=== PATIENT | female | born 1980 | race Caucasian/White ===

== ENCOUNTER 2016-07-08 14:58 | Emergency (ER) | payer MEDICAID ==
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
== END 2016-07-08 16:16 | disposition home or self-care (01) ==
LOC: ER 14:58
DX: S33.5XXA Sprain of ligaments of lumbar spine, initial encounter (principal); Z90.49 Acquired absence of other specified parts of digestive tract; V03.99XA Pedestrian with other conveyance injured in collision with car, pick-up truck or van, unspecified whether traffic or nontraffic accident, initial encounter; Y93.89 Activity, other specified; Y92.488 Other paved roadways as the place of occurrence of the external cause; Y99.8 Other external cause status
CPT/HCPCS: Z7502

== ENCOUNTER 2016-09-13 14:30 | Emergency (ER) | payer MEDICAID ==
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
[2016-09-13 15:57] LABS: AMPHETAMINE URINE POSITIVE (NEGATIVE); BARBITURATES URINE NEGATIVE (NEGATIVE); METHADONE URINE NEGATIVE (NEGATIVE)
--- NOTE | 2016-09-14 09:18 | Diagnostic Imaging Report ---
Thoracolumbar spine (3 views) HISTORY: Pain, trauma Only the lower portion of the thoracic spine is included in the exam. Alignment is normal. Disc spaces are maintained. Minimal spur formation noted about the endplates of L4 and L5. No acute abnormality is. No fractures. Incidentally noted are surgical clips within the right upper quadrant of the abdomen consistent with prior cholecystectomy. IMPRESSION: 1. No acute abnormalities 2. Mild degenerative changes
== END 2016-09-13 16:30 | disposition home or self-care (01) ==
LOC: ER 14:30
DX: S39.012A Strain of muscle, fascia and tendon of lower back, initial encounter (principal); V49.59XA Passenger injured in collision with other motor vehicles in traffic accident, initial encounter; Y93.89 Activity, other specified; Y92.488 Other paved roadways as the place of occurrence of the external cause; Y99.8 Other external cause status
CPT/HCPCS: 72080-TC; 80307; 81025-TC

== ENCOUNTER 2016-10-15 22:11 | Emergency (ER) | payer MEDICAID | END 2016-10-15 22:45 | disposition left against medical advice (07) | LOC: ER 22:11 | DX: R10.9 Unspecified abdominal pain (principal) ==

== ENCOUNTER 2016-12-08 22:30 | Emergency (ER) | payer MEDICAID ==
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
== END 2016-12-08 23:20 | disposition home or self-care (01) ==
LOC: ER 22:30
DX: J02.9 Acute pharyngitis, unspecified (principal)
CPT/HCPCS: 99284; 96372 ×2; J1885; J0696; Z7502

== ENCOUNTER 2017-02-15 06:38 | Emergency (ER) | payer MEDICAID ==
--- NOTE | 2017-02-15 07:08 | ED Physician Chart ---
ED Chief Complaint/HPI - Patient Information Date Seen:: 02/15/17 Time Seen:: 07:00 Chief Complaint:: PERIUMBILICAL PAIN FOR THE PAST YEAR. WORSE PAST 2-3 DAYS History of Present Illness:: THIS 36 YEAR OLD FEMALE PRESENTS WITH ARNOLD-UMBILICAL PAIN THAT STARTED A YEAR AGO WHEN SHE UNDERWENT SURGERY FOR OBESITY WITH A "SLEEVE" PLACED IN HER ABDOMEN. SHE RATES THE SEVERITY OF THE PAIN A 10/10 SEVERITY. THE PAIN IS SHARP/STABBING AND DOES NOT RADIATE TO THE BACK OR THE CHEST. PT HAS HAD DAILY NAUSEA AND VOMITING WITHOUT ANY DIARRHEA. THE PAIN HAS BECOME MORE SEVERE OVER THE PAST 2-3 D. THE PAIN IS MORE SEVERE WITH VOMITING. NO RELIEVING FACTORS. Allergies:: Allergies Allergy/AdvReac Type Severity Reaction Status Date / Time No Known Allergies Allergy Verified 12/08/16 22:32 <Cristian Schmid - Last Filed: 02/15/17 07:08> - Patient Information Allergies:: Allergies Allergy/AdvReac Type Severity Reaction Status Date / Time No Known Allergies Allergy Verified 12/08/16 22:32 Vitals:: Vital Signs - 8 hr 02/15/17 06:45 Temp 97.5 F HR 78 RR 19 BP 99/70 O2 Sat % 99 Historian:: Patient Family MD/PCP:: Dr. Hong LMP:: Irregular. On injectable contraceptive. Review:: Nurse's Note Reviewed <Surinder Unger - Last Filed: 02/15/17 13:23> ED Review of Systems - Review of Systems General/Constitutional: No fever, No chills, No weight loss, No weakness, No edema, No loss of appetite Skin: No rash, No bruising Head: No headache, No light-headedness Eyes: No loss of vision, No pain, No diplopia ENT: No earache, No nasal drainage, No sore throat Neck: No neck pain, No swelling, No thyromegaly, No stiffness, No mass noted Cardio Vascular: No chest pain, No palpitations, No edema Pulmonary: No SOB, No cough, No wheezing GI: Nausea, Vomiting, No diarrhea, Pain, No melena, Hematochezia (?), No hematemesis G/U: No dysuria, No frequency, No hematuria Merchandise Coordinator: No vaginal discharge, No abnormal vaginal bleed Musculoskeletal: No bone or joint pain, No back pain Endocrine: No polyuria, No polydipsia Psychiatric: No prior psych history Hematopoietic: No bruising, No lymphadenopathy Allergic/Immuno: No urticaria, No angioedema Neurological: No syncope, No focal symptoms, No weakness, No paresthesia, No headache, No dizziness, No confusion <Kingsley Ungergus - Last Filed: 02/15/17 13:23> ED Past Medical History - Past Medical History Past Medical History: Other (chronic pain syndrome related to postsurgical abdominal pain since 01/2016.) Family History: None Social History: Non Smoker, No Alcohol, No Drug Use, , Other (lives with her and children.) Surgical History: Cholecystectomy (Laparoscopic cholecystectomy surgery 01/2016. ), (x 4 with last one in .), other (abdominal surgery with sleeve for weight loss 01/2016) Psychiatricy History: None Medication: Reviewed <Surinder Unger - Last Filed: 02/15/17 13:23> Family Medical History - Family Member Mother History Unknown: Yes Living Status: Still Living Hx Family Cancer: Yes <Cristian Schmid - Last Filed: 02/15/17 07:08> ED Physical Exam - Physical Examination General/Constitutional: Awake, Well-developed, well-nourished, Alert, No distress, GCS 15, Non-toxic appearing, Ambulatory Other Gen/Cons comments:: Breathes comfortably, speaks clearly, interacts normally, and ambulates without difficulty. Head: Atraumatic Eyes: Lids, conjuctiva normal, PERRL, EOMI Other Eyes comments:: Anicteric sclera. Skin: Nl inspection, No rash, No skin lesions, No ecchymosis, No lymphadenopathy ENMT: External ears, nose nl, Nasal exam nl, Oropharynx nl Neck: Nontender, Full ROM w/o pain, No nuchal rigidity, No mass, No stridor Respiratory: Nl effort/Exclusion Cardio Vascular: RRR, No murmur, gallop, rubs GI: No organomegaly, No hernia, Normal BS's, Nondistended, No mass/bruits, No McBurney tenderness Other GI comments:: Tenderness to palpation at umbilical region. Abdomen is obese but soft. No R/G. : No CVA tenderness Other comments:: Pelvic and rectal exams: deferred per pt's request. Extremities: No tenderness or effusion, No edema Neuro/Psych: Alert/oriented (oriented x 3.), Mood normal, Normal gait, No focal deficits <NgSurinder - Last Filed: 02/15/17 13:23> ED Labs/Radiology/EKG Results - Lab Results Results: Laboratory Tests 02/15/17 02/15/17 02/15/17 07:28 07:28 07:28 WBC 5.8 RBC 4.07 Hgb 12.4 Hct 36.1 L MCV 88.6 MCH 30.5 MCHC Differential 34.4 RDW 13.0 Plt Count 172 MPV 9.0 Neutrophils % 51.0 Lymphocytes % 40.4 Monocytes % 5.4 Eosinophils % 2.4 Basophils % 0.8 PT 10.2 INR 0.98 PTT (Actin FS) 26.8 Sodium 136 Potassium 3.5 Chloride 105 Carbon Dioxide 29.5 Anion Gap 5.0 L BUN 12 Creatinine 0.7 Est GFR ( Amer) > 60.0 Est GFR (Non-Af Amer) > 60.0 BUN/Creatinine Ratio 17.1 Glucose 88 Calcium 8.9 Total Bilirubin 0.3 AST 14 ALT 10 Alkaline Phosphatase 69 Total Protein 6.4 Albumin 3.8 Globulin 2.6 Albumin/Globulin Ratio 1.5 Amylase 37 Lipase 24 POC Ur Test 02/15/17 08:15 WBC RBC Hgb Hct MCV MCH MCHC Differential RDW Plt Count MPV Neutrophils % Lymphocytes % Monocytes % Eosinophils % Basophils % PT INR PTT (Actin FS) Sodium Potassium Chloride Carbon Dioxide Anion Gap BUN Creatinine Est GFR ( Amer) Est GFR (Non-Af Amer) BUN/Creatinine Ratio Glucose Calcium Total Bilirubin AST ALT Alkaline Phosphatase Total Protein Albumin Globulin Albumin/Globulin Ratio Amylase Lipase POC Ur Test Negative Laboratory Last Values WBC 5.8 Th/cmm (4.8-10.8) 02/15/17 07:28 RBC 4.07 Mil/cmm (3.80-5.10) 02/15/17 07:28 Hgb 12.4 gm/dL (12-16) 02/15/17 07:28 Hct 36.1 % (41.0-60) L 02/15/17 07:28 MCV 88.6 fl (81-100) 02/15/17 07:28 MCH 30.5 pg (27.0-31.0) 02/15/17 07: MCHC Differential 34.4 pg (28.0-36.0) 02/15/17 07:28 RDW 13.0 % (11.5-20.0) 02/15/17 07:28 Plt Count 172 Th/cmm (150-400) 02/15/17 07:28 MPV 9.0 fl 02/15/17 07:28 Neutrophils % 51.0 % (40.0-80.0) 02/15/17 07:28 Lymphocytes % 40.4 % (20.0-50.0) 02/15/17 07:28 Monocytes % 5.4 % (2.0-10.0) 02/15/17 07: Eosinophils % 2.4 % (0.0-5.0) 02/15/17 07: Basophils % 0.8 % (0.0-2.0) 02/15/17 07:28 PT 10.2 SECONDS (9.5-11.5) 02/15/17 07:28 INR 0.98 (0.5-1.4) 02/15/17 07:28 PTT (Actin FS) 26.8 SECONDS (26.0-38.0) 02/15/17 07:28 Sodium 136 mEq/L (136-145) 02/15/17 07:28 Potassium 3.5 mEq/L (3.5-5.1) 02/15/17 07:28 Chloride 105 mEq/L (98-107) 02/15/17 07:28 Carbon Dioxide 29.5 mEq/L (21.0-31.0) 02/15/17 07:28 Anion Gap 5.0 (7.0-16.0) L 02/15/17 07:28 BUN 12 mg/dL (7-25) 02/15/17 07:28 Creatinine 0.7 mg/dL (0.6-1.2) 02/15/17 07:28 Est GFR ( Amer) > 60.0 ml/min (>90) 02/15/17 07:28 Est GFR (Non-Af Amer) > 60.0 ml/min 02/15/17 07:28 BUN/Creatinine Ratio 17.1 02/15/17 07:28 Glucose 88 mg/dL (70-105) 02/15/17 07:28 Calcium 8.9 mg/dL (8.6-10.3) 02/15/17 07:28 Total Bilirubin 0.3 mg/dL (0.3-1.0) 02/15/17 07:28 AST 14 U/L (13-39) 02/15/17 07:28 ALT 10 U/L (7-52) 02/15/17 07:28 Alkaline Phosphatase 69 U/L (34-104) 02/15/17 07:28 Total Protein 6.4 gm/dL (6.0-8.3) 02/15/17 07:28 Albumin 3.8 gm/dL (3.7-5.3) 02/15/17 07:28 Globulin 2.6 gm/dL 02/15/17 07:28 Albumin/Globulin Ratio 1.5 (1.0-1.8) 02/15/17 07:28 Amylase 37 U/L (29-103) 02/15/17 07:28 Lipase 24 U/L (11-82) 02/15/17 07:28 Urine Source CLEAN C 02/15/17 07:50 Urine Color YELLOW 02/15/17 07:50 Urine Clarity CLEAR (CLEAR) 02/15/17 07:50 Urine pH 7.0 (4.6 - 8.0) 02/15/17 07:50 Ur Specific [place] 1.010 (1.005-1.030) 02/15/17 07:50 Urine Protein NEGATIVE mg/dL (NEGATIVE) 02/15/17 07:50 Urine Glucose (UA) NEGATIVE mg/dL (NEGATIVE) 02/15/17 07:50 Urine Ketones NEGATIVE mg/dL (NEGATIVE) 02/15/17 07:50 Urine Blood NEGATIVE (NEGATIVE) 02/15/17 07:50 Urine Nitrate NEGATIVE (NEGATIVE) 02/15/17 07:50 Urine Bilirubin NEGATIVE (NEGATIVE) 02/15/17 07:50 Urine Urobilinogen 0.2 E.U./dL (0.2 - 1.0) 02/15/17 07:50 Ur Leukocyte Esterase NEGATIVE (NEGATIVE) 02/15/17 07:50 Urine RBC NONE SEEN /hpf (0-5) 02/15/17 07:50 Urine WBC 0-2 /hpf (0-5) 02/15/17 07:50 Ur Epithelial Cells OCCASIONAL /lpf (FEW) 02/15/17 07:50 Urine Bacteria FEW /hpf (NONE SEEN) 02/15/17 07:50 POC Ur Test Negative 02/15/17 08:15 - Radiology Results Results: CT of abdomen/pelvis with/without contrast: Verbal report from the radiologist Dr. Bhavik Gaytan at about 1255. See Note. <Surinder Unger - Last Filed: 02/15/17 13:23> ED Assessment - Assessment General Assessment: DR. UNGER IS HERE IN THE ED AND TAKING OVER THE CASE. <Cristian Schmid - Last Filed: 02/15/17 07:08> ED Septic Shock - . Is Septic Shock (SBP<90, OR Lactate>4 mmol\\L) present?: No - <6hrs of presentation: Vital Signs: Vital Signs - 8 hr 02/15/17 06:45 Temp 97.5 F HR 78 RR 19 BP 99/70 O2 Sat % 99 <Surinder Unger - Last Filed: 02/15/17 13:23> ED Reassessment (Disposition) - Reassessment Reassessment:: [address] Chen at about 0715. Pt was examined by me. Pt already had pain control ordered by Dr. Chen. Lab results and CT report are pending. 0915 Pt feels much better and does not need more pain control. Awaiting abdominal/pelvic CT. 1055 Pt remains stable. Her pain is tolerable. Pt does not need more pain control. Abdominal/pelvic CT report is pending. 1300 Pt remains stable and comfortable. Written CT report is still pending. Dr. Bhavik Gaytan, radiologist who read the abdominal/pelvic CT earlier today, called and spoke with me on the phone at about 1255. He stated that he had read the CT study earlier. The computer system was malfunctioning, and the written report could not be transmitted here. There were no acute or significant findings. No leak from gastric bypass surgery. He would attempt to send the report again later today. 1305 Discussed with pt at length. Pt continues to feel well. Lab and verbal CT report results have been discussed with pt. Management plan has been discussed. Pt requests to go home now and does not want further observation/management in hospital. Aftercare instructions have been given. Her will take her home. Reassessment Condition:: Improved - Diagnosis Diagnosis:: Chronic postsurgical abdominal pain. Stable and improved. - Aftercare/Follow up Instructions Aftercare/Follow-Up Instructions:: Refer to Discharge Instructions Notes:: Bedrest for today. Pt states that she has pain medication prescribed by PCP at home and does not need a prescription for any analgesic. Clear liquid diet today. Abdominal pain instructions given. F/U with PCP Dr. Hong in one day for recheck. Return to ER immediately if condition worsens or if any further questions/problems. Medication Prescribed:: None - Patient Disposition Discharge/Transfer:: Home Time:: 13:10 Condition at Disposition:: Stable, Improved <Surinder Unger - Last Filed: 02/15/17 13:23>
[2017-02-15] MEDS ORDERED: Sodium Chloride 0.9% 1,000 ML IV ONE (07:15)
[2017-02-15 07:39] LABS: % BASOPHILS 0.8 % (0.0-2.0); % EOSINOPHILS 2.4 % (0.0-5.0); % LYMPHOCYTES 40.4 % (20.0-50.0); % MONOCYTES 5.4 % (2.0-10.0); HEMATOCRIT 36.1 % (41.0-60); HEMOGLOBIN 12.4 gm/dL (12-16); MEAN CELL VOLUME 88.6 fl (81-100); MEAN CORPUSCULAR HEMOGLOBIN 30.5 pg (27.0-31.0); MEAN CORPUSCULAR HGB CONC 34.4 pg (28.0-36.0); NEUTROPHILE ABSOLUTE 3.1 Th/cmm (1.8-8.0); PLATELET COUNT 172 Th/cmm (150-400); RED BLOOD COUNT 4.07 Mil/cmm (3.80-5.10); WHITE BLOOD COUNT 5.8 Th/cmm (4.8-10.8)
[2017-02-15 07:47] LABS: INR 0.98 (0.5-1.4); PROTHROMBIN TIME (TEST) 10.2 SECONDS (9.5-11.5)
[2017-02-15] MEDS ORDERED: Morphine Sulfate 4 mg/mL 1mL Syr ONE (07:47)
[2017-02-15 07:53] LABS: ALB/GLOB RATIO 1.5 (1.0-1.8); ALKALINE PHOSPHATASE 69 U/L (34-104); AMYLASE SERUM 37 U/L (29-103); BILIRUBIN,TOTAL 0.3 mg/dL (0.3-1.0); BUN - UREA NITROGEN 12 mg/dL (7-25); BUN/CREATININE RATIO 17.1; CALCIUM SERUM 8.9 mg/dL (8.6-10.3); CARBON DIOXIDE 29.5 mEq/L (21.0-31.0); CHLORIDE 105 mEq/L (98-107); CREATININE - SERUM 0.7 mg/dL (0.6-1.2); GLUCOSE 88 mg/dL (70-105); LIPASE 24 U/L (11-82); POTASSIUM SERUM 3.5 mEq/L (3.5-5.1); SGOT 14 U/L (13-39); SGPT/ALT 10 U/L (7-52); SODIUM SERUM 136 mEq/L (136-145)
[2017-02-15] MEDS ORDERED: IOHEXOL 300MG/ML 100 ML VIAL ONE (09:01)
[2017-02-15 10:11] LABS: URINE BILIRUBIN NEGATIVE (NEGATIVE); URINE BLOOD NEGATIVE (NEGATIVE); URINE GLUCOSE (UA) NEGATIVE (NEGATIVE); URINE KETONE NEGATIVE (NEGATIVE); URINE PROTEIN NEGATIVE (NEGATIVE); URINE UROBILINOGEN 0.2 E.U./dL (0.2 - 1.0)
[2017-02-15 10:12] LABS: URINE COLOR YELLOW
[2017-02-15 10:38] LABS: URINE BACTERIA FEW /hpf (NONE SEEN); URINE EPITHELIAL CELLS OCCASIONAL /lpf (FEW); URINE RBC NONE SEEN /hpf (0-5); URINE WBC 0-2 /hpf (0-5)
--- NOTE | 2017-02-16 10:42 | Diagnostic Imaging Report ---
CT abdomen and pelvis with intravenous contrast Indication: Abdominal pain Comparison: None, Technique: Axial images were obtained from the lung bases to the bilateral proximal femurs with IV contrast. Coronal reconstructions were made. total DLP: 611, CTDI12.3 FINDINGS: Atelectatic and hypodensity changes of the lung bases are noted. No evidence of focal hepatic, splenic, or pancreatic lesions. No focal adrenal lesions. No evidence of hydronephrosis or focal renal lesions. 1.6 cm left adnexal follicular cyst is noted. Moderate stool is seen throughout the colon. No evidence of appendicitis. There is evidence of gastric bypass surgery. No evidence of small bowel obstruction. Nonspecific fluid-filled loops of small bowel are seen along the left hemiabdomen. No evidence of free abdominal air or free abdominal fluid. Mild nonspecific inflammatory changes of the subcutaneous of the lower anterior pelvic wall is noted. Mild degenerative changes of the spine are noted. IMPRESSION: Evidence of prior gastric bypass surgery. No evidence of small bowel obstruction. Nonspecific fluid-filled loops of small bowel primarily in the left hemiabdomen. An enteritis may be considered in the appropriate clinical setting. No evidence of appendicitis. Evidence of prior cholecystectomy. Mild nonspecific inflammatory changes seen along the anterior pelvic wall subcutaneous tissues. 1.6 cm left adnexal follicular cyst. If indicated short-term follow-up ultrasound may be obtained.
== END 2017-02-15 13:07 | disposition home or self-care (01) ==
LOC: ER 06:38
DX: G89.28 Other chronic postprocedural pain (principal); R10.9 Unspecified abdominal pain
CPT/HCPCS: 99285; 96374; 96375; 74177; 36415; 85025; 85610; 81001; 82150; 81025; 83690; 80053; J2405; J7030; Q9967

== ENCOUNTER 2017-07-25 22:13 | Emergency (ER) | payer SELFPAY ==
[2017-07-25 23:21] LABS: % BASOPHILS 1.1 % (0.0-2.0); % EOSINOPHILS 5.8 % (0.0-5.0); % LYMPHOCYTES 23.5 % (20.0-50.0); % MONOCYTES 6.8 % (2.0-10.0); % NEUTROPHILS 62.8 % (40.0-80.0); EOSINOPHILE ABSOLUTE 0.2 Th/cmm (0.1-0.4); HEMATOCRIT 34.9 % (41.0-60); HEMOGLOBIN 11.8 gm/dL (12-16); MEAN CELL VOLUME 89.1 fl (81-100); MEAN CORPUSCULAR HGB CONC 33.7 pg (28.0-36.0); MEAN PLATELET VOLUME 8.9 fl; MONOCYTE ABSOLUTE 0.3 Th/cmm (0.3-1.0); NEUTROPHILE ABSOLUTE 2.8 Th/cmm (1.8-8.0); PLATELET COUNT 178 Th/cmm (150-400); RED BLOOD COUNT 3.92 Mil/cmm (3.80-5.10); RED CELL DISTRIBUTION WIDTH 12.8 % (11.5-20.0); WHITE BLOOD COUNT 4.3 Th/cmm (4.8-10.8)
[2017-07-25 23:22] LABS: URINE MICROSCOPIC INDICATED? YES; URINE SOURCE CLEAN C
[2017-07-25 23:29] LABS: URINE BILIRUBIN NEGATIVE (NEGATIVE); URINE BLOOD NEGATIVE (NEGATIVE); URINE GLUCOSE (UA) NEGATIVE (NEGATIVE); URINE KETONE NEGATIVE (NEGATIVE); URINE LEUKOCYTE ESTERASE NEGATIVE (NEGATIVE); URINE NITRATE NEGATIVE (NEGATIVE); URINE PH 6.5 (4.6 - 8.0); URINE PROTEIN NEGATIVE (NEGATIVE); URINE UROBILINOGEN 0.2 E.U./dL (0.2 - 1.0)
[2017-07-25 23:30] LABS: URINE CLARITY CLEAR (CLEAR); URINE COLOR YELLOW
[2017-07-25 23:31] LABS: URINE BACTERIA FEW /hpf (NONE SEEN); URINE EPITHELIAL CELLS FEW /lpf (FEW); URINE RBC 0-2 /hpf (0-5); URINE WBC 0-2 /hpf (0-5)
[2017-07-25 23:32] LABS: ALB/GLOB RATIO 1.6 (1.0-1.8); ALBUMIN 3.9 gm/dL (3.7-5.3); ALKALINE PHOSPHATASE 79 U/L (34-104); ANION GAP 9.1 (7.0-16.0); BILIRUBIN,TOTAL 0.2 mg/dL (0.3-1.0); BUN - UREA NITROGEN 12 mg/dL (7-25); CALCIUM SERUM 8.8 mg/dL (8.6-10.3); CARBON DIOXIDE 24.9 mEq/L (21.0-31.0); CHLORIDE 105 mEq/L (98-107); CREATININE - SERUM 0.7 mg/dL (0.6-1.2); GFR AFRICAN-AMERICAN > 60.0 ml/min (>90); GFR NON AFRICAN-AMERICAN > 60.0 ml/min; GLUCOSE 85 mg/dL (70-105); SGOT 16 U/L (13-39); SGPT/ALT 12 U/L (7-52); SODIUM SERUM 135 mEq/L (136-145); TOTAL PROTEIN,SERUM 6.4 gm/dL (6.0-8.3)
--- NOTE | 2017-07-26 00:01 | ED Physician Chart ---
ED Chief Complaint/HPI - Patient Information Date Seen:: 07/25/17 Time Seen:: 22:40 Chief Complaint:: BACK PAIN History of Present Illness:: THIS IS A 36 YO FEMALE WITH CONCERN ABOUT HER BACK PAIN THAT IS ASSOCIATED WITH ON AND OFF CONSTIPATION. SHE DENIES ANY RECENT FALLS OR LIFTING HEAVY OBJECTS. SHE DENIES PAINFUL URINATION AND RENAL STONES IN THE PAST. Allergies:: Allergies Allergy/AdvReac Type Severity Reaction Status Date / Time No Known Allergies Allergy Verified 12/08/16 22:32 Vitals:: Vital Signs - 8 hr 07/25/17 22:30 Temp 97.4 F HR 98 RR 18 BP 121/81 O2 Sat % 97 Historian:: Patient Review:: Nurse's Note Reviewed ED Review of Systems - Review of Systems General/Constitutional: No fever, No chills, No weight loss, No weakness, No diaphoresis, No edema, No loss of appetite Skin: No skin lesions, No rash, No bruising Head: No headache, No light-headedness Eyes: No loss of vision, No pain, No diplopia ENT: No earache, No nasal drainage, No sore throat, No tinnitus Neck: No neck pain, No swelling, No thyromegaly, No stiffness, No mass noted Cardio Vascular: No chest pain, No palpitations, No PND, No orthopnea, No edema Pulmonary: No SOB, No cough, No sputum, No wheezing GI: No nausea, No vomiting, No diarrhea, No pain, No melena, No hematochezia, No constipation, No hematemesis G/U: No dysuria, No frequency, No hematuria Musculoskeletal: No bone or joint pain, Back pain, No muscle pain Endocrine: No polyuria, No polydipsia Psychiatric: No prior psych history, No depression, No anxiety, No suicidal ideation Hematopoietic: No bruising, No lymphadenopathy Allergic/Immuno: No urticaria, No angioedema Neurological: No syncope, No focal symptoms, No weakness, No paresthesia, No headache, No seizure, No dizziness, No confusion, No vertigo ED Past Medical History - Past Medical History Obtainable: Yes Past Medical History: PUD/GERD Family History: None Social History: Non Smoker, No Alcohol, No Drug Use Surgical History: Hernia Psychiatricy History: None Family Medical History - Family Member Mother History Unknown: Yes Living Status: Still Living Hx Family Cancer: Yes ED Physical Exam - Physical Examination General/Constitutional: Awake, Well-developed, well-nourished, Alert, No distress, GCS 15, Non-toxic appearing, Ambulatory Head: Atraumatic Eyes: Lids, conjuctiva normal, PERRL, EOMI Skin: Nl inspection, No rash, No skin lesions, No ecchymosis, Well hydrated, No lymphadenopathy ENMT: External ears, nose nl, Nasal exam nl, Lips, teeth, gums nl Neck: Nontender, Full ROM w/o pain, No JVD, No nuchal rigidity, No bruit, No mass, No stridor Respiratory: Nl effort/Exclusion, Clear to Auscultation, No Wheeze/Rhonchi/Rales Cardio Vascular: RRR, No murmur, gallop, rubs, NL S1 S2 GI: No tenderness/rebounding/guarding, No organomegaly, No hernia, Normal BS's, Nondistended, No mass/bruits, No McBurney tenderness : No CVA tenderness Extremities: No tenderness or effusion, Full ROM, normal strength in all extremities, No edema, Normal digits & nails Neuro/Psych: Alert/oriented, DTR's symmetric, Normal sensory exam, Normal motor strength, Judgement/insight normal, Mood normal, Normal gait, No focal deficits Misc: Normal back, No paraspinal tenderness ED Labs/Radiology/EKG Results - Lab Results Results: Laboratory Tests 07/25/17 07/25/17 07/25/17 23:00 23:00 23:00 WBC 4.3 L RBC 3.92 Hgb 11.8 L Hct 34.9 L MCV 89.1 MCH 30.0 MCHC Differential 33.7 RDW 12.8 Plt Count 178 MPV 8.9 Neutrophils % 62.8 Lymphocytes % 23.5 Monocytes % 6.8 Eosinophils % 5.8 H Basophils % 1.1 Sodium 135 L Potassium 4.0 Chloride 105 Carbon Dioxide 24.9 Anion Gap 9.1 BUN 12 Creatinine 0.7 Est GFR ( Amer) > 60.0 Est GFR (Non-Af Amer) > 60.0 BUN/Creatinine Ratio 17.1 Glucose 85 Calcium 8.8 Total Bilirubin 0.2 L AST 16 ALT 12 Alkaline Phosphatase 79 Total Protein 6.4 Albumin 3.9 Globulin 2.5 Albumin/Globulin Ratio 1.6 Urine Source CLEAN C Urine Color YELLOW Urine Clarity CLEAR Urine pH 6.5 Ur Specific [place] 1.015 Urine Protein NEGATIVE Urine Glucose (UA) NEGATIVE Urine Ketones NEGATIVE Urine Blood NEGATIVE Urine Nitrate NEGATIVE Urine Bilirubin NEGATIVE Urine Urobilinogen 0.2 Ur Leukocyte Esterase NEGATIVE Urine RBC 0-2 Urine WBC 0-2 Ur Epithelial Cells FEW Urine Bacteria FEW ED Assessment - Assessment General Assessment: BACK PAIN ED Septic Shock - . Is Septic Shock (SBP<90, OR Lactate>4 mmol\L) present?: No - <6hrs of presentation: Vital Signs: Vital Signs - 8 hr 07/25/17 22:30 Temp 97.4 F HR 98 RR 18 BP 121/81 O2 Sat % 97 ED Reassessment (Disposition) - Reassessment Reassessment Condition:: Unchanged - Diagnosis Diagnosis:: BACK PAIN - Aftercare/Follow up Instructions Aftercare/Follow-Up Instructions:: Counseled pt regarding lab results/diagnosis & need follow up, Refer to Discharge Instructions, Counseled pt & family regarding lab results/diagnosis & need follow up - Patient Disposition Discharge/Transfer:: Home Condition at Disposition:: Improved ED Discharge Plan - Patient Disposition Admit/Discharge/Transfer: PT DISCHARGED HOME Condition at Disposition: Stable Instructions: Back Pain, Adult, [id number] Additional Instructions: MAKE A FOLLOW UP WITH PRIMARY MEDICAL DOCTOR YONIS, COMPLY WITH PRESCRIBED MEDICATION, DRINK PLENTY OF FLUIDS.
== END 2017-07-26 00:10 | disposition home or self-care (01) ==
LOC: ER 22:13
DX: M54.9 Dorsalgia, unspecified (principal); K21.9 Gastro-esophageal reflux disease without esophagitis; K27.9 Peptic ulcer, site unspecified, unspecified as acute or chronic, without hemorrhage or perforation
CPT/HCPCS: 99284; 96372; 36415; 84443; 85025; 81001; 80053; 87040 ×2; J1885; Z7502

== ENCOUNTER 2017-08-06 22:02 | Emergency (ER) | payer MEDICAID ==
[2017-08-06] MEDS ORDERED: Fluorescein Sodium 1 mg Ophth Strip ONE (22:20)
[2017-08-06] MEDS ORDERED: Fluorescein Sodium 1 mg Ophth Strip RIGHT EYE ONE (22:28)
--- NOTE | 2017-08-06 22:40 | ED Physician Chart ---
ED Chief Complaint/HPI - Patient Information Date Seen:: 08/06/17 Time Seen:: 20:10 Chief Complaint:: right eye pain History of Present Illness:: Patient awoke this morning with right eye pain. She denies eye trauma. Patient had gastric sleeve surgery on 12/12/2014 and since then she vomited a lot. She vomited 4 times yesterday. Allergies:: Allergies Allergy/AdvReac Type Severity Reaction Status Date / Time No Known Allergies Allergy Verified 12/08/16 22:32 Vitals:: Vital Signs - 8 hr 08/06/17 22:05 Temp 97.6 F HR 67 RR 17 BP 125/67 O2 Sat % 99 Historian:: Patient Review:: Nurse's Note Reviewed ED Review of Systems - Review of Systems General/Constitutional: No fever, No chills, No weight loss, No weakness, No diaphoresis, No edema, No loss of appetite Skin: No skin lesions, No rash, No bruising Head: No headache, No light-headedness Eyes: No loss of vision, Pain, No diplopia ENT: No earache, No nasal drainage, No sore throat, No tinnitus Neck: No neck pain, No swelling, No thyromegaly, No stiffness, No mass noted Cardio Vascular: No chest pain, No palpitations, No PND, No orthopnea, No edema Pulmonary: No SOB, No cough, No sputum, No wheezing GI: No nausea, No vomiting, No diarrhea, No pain, No melena, No hematochezia, No constipation, No hematemesis G/U: No dysuria, No frequency, No hematuria Musculoskeletal: No bone or joint pain, No back pain, No muscle pain Endocrine: No polyuria, No polydipsia Psychiatric: No prior psych history, No depression, No anxiety, No suicidal ideation Hematopoietic: No bruising, No lymphadenopathy Allergic/Immuno: No urticaria, No angioedema Neurological: No syncope, No focal symptoms, No weakness, No paresthesia, No headache, No seizure, No dizziness, No confusion, No vertigo ED Past Medical History - Past Medical History Past Medical History: No significant medical hx Family History: Heart disease, Diabetes Melitus, HTN Social History: Non Smoker, No Alcohol Psychiatricy History: None Medication: None Family Medical History - Family Member Mother History Unknown: Yes Living Status: Still Living Hx Family Cancer: Yes ED Physical Exam - Physical Examination General/Constitutional: Awake, Well-developed, well-nourished, Alert, No distress, GCS 15, Non-toxic appearing, Ambulatory Head: Atraumatic Eyes: PERRL, EOMI Other Eyes comments:: Both eyes: Pupils equal, round, reactive to light; the optic disc are sharp; extraocular movements are intact; visual tuttle grossly intact. Right eye: Capillaries injected lateral to the cornea as compared to left eye where no such injection was noted; upper lid everted and lower lid retracted and no foreign body seen; fluorescein negative; fluorescein irrigated out of right eye with normal saline. Visual acuity: Left eye 20/15; right eye 20/20. Skin: Nl inspection, No rash, No skin lesions, No ecchymosis, Well hydrated, No lymphadenopathy ENMT: External ears, nose nl, Nasal exam nl, Lips, teeth, gums nl Neck: Nontender, Full ROM w/o pain, No JVD, No nuchal rigidity, No bruit, No mass, No stridor Respiratory: Nl effort/Exclusion, Clear to Auscultation, No Wheeze/Rhonchi/Rales Cardio Vascular: RRR, No murmur, gallop, rubs, NL S1 S2 GI: No tenderness/rebounding/guarding, No organomegaly, No hernia, Normal BS's, Nondistended, No mass/bruits, No McBurney tenderness : No CVA tenderness Extremities: No tenderness or effusion, Full ROM, normal strength in all extremities, No edema, Normal digits & nails Neuro/Psych: Alert/oriented, DTR's symmetric, Normal sensory exam, Normal motor strength, Judgement/insight normal, Mood normal, Normal gait, No focal deficits Misc: Normal back, No paraspinal tenderness ED Assessment - Assessment General Assessment: The only abnormality of the right eye which I could find was capillary injection lateral to the pupil. This may have been caused by frequent vomiting which could have raised the intraocular pressure. Patient obviously does not have a serious eye problem. If she did her visual acuity would not be 20/20 in the affected eye. ED Septic Shock - . Is Septic Shock (SBP<90, OR Lactate>4 mmol\L) present?: No - <6hrs of presentation: Vital Signs: Vital Signs - 8 hr 08/06/17 22:05 Temp 97.6 F HR 67 RR 17 BP 125/67 O2 Sat % 99 ED Reassessment (Disposition) - Reassessment Reassessment Condition:: Unchanged - Diagnosis Diagnosis:: Irritation right eye - Patient Disposition Discharge/Transfer:: Home Condition at Disposition:: Stable, Unchanged
== END 2017-08-06 22:55 | disposition home or self-care (01) ==
LOC: ER 22:02
DX: H57.8 Other specified disorders of eye and adnexa (principal); R11.10 Vomiting, unspecified
CPT/HCPCS: Z7502; Z7610

== ENCOUNTER 2017-09-14 16:10 | Emergency (ER) | payer MEDICAID ==
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
[2017-09-14] MEDS ORDERED: Sodium Chloride 0.9% 2,000 ML IV ONE (16:45)
[2017-09-14 17:02] LABS: URINE MICROSCOPIC INDICATED? YES; URINE SOURCE RANDOM
[2017-09-14 17:04] LABS: URINE BILIRUBIN NEGATIVE (NEGATIVE); URINE BLOOD NEGATIVE (NEGATIVE); URINE GLUCOSE (UA) NEGATIVE (NEGATIVE); URINE KETONE NEGATIVE (NEGATIVE); URINE LEUKOCYTE ESTERASE NEGATIVE (NEGATIVE); URINE NITRATE NEGATIVE (NEGATIVE); URINE PROTEIN NEGATIVE (NEGATIVE); URINE UROBILINOGEN 0.2 E.U./dL (0.2 - 1.0)
[2017-09-14 17:05] LABS: % BASOPHILS 0.4 % (0.0-2.0); % EOSINOPHILS 1.4 % (0.0-5.0); % LYMPHOCYTES 34.2 % (20.0-50.0); EOSINOPHILE ABSOLUTE 0.1 Th/cmm (0.1-0.4); HEMATOCRIT 36.1 % (41.0-60); HEMOGLOBIN 12.1 gm/dL (12-16); LYMPHOCYTE ABSOLUTE 2.5 Th/cmm (1.5-3.0); MEAN CELL VOLUME 89.5 fl (81-100); MEAN CORPUSCULAR HEMOGLOBIN 29.9 pg (27.0-31.0); MEAN CORPUSCULAR HGB CONC 33.5 pg (28.0-36.0); MEAN PLATELET VOLUME 8.5 fl; MONOCYTE ABSOLUTE 0.4 Th/cmm (0.3-1.0); NEUTROPHILE ABSOLUTE 4.3 Th/cmm (1.8-8.0); PLATELET COUNT 215 Th/cmm (150-400); RED BLOOD COUNT 4.03 Mil/cmm (3.80-5.10); RED CELL DISTRIBUTION WIDTH 13.2 % (11.5-20.0); WHITE BLOOD COUNT 7.3 Th/cmm (4.8-10.8)
[2017-09-14 17:09] LABS: URINE CLARITY CLEAR (CLEAR); URINE COLOR STRAW
[2017-09-14 17:10] LABS: URINE BACTERIA NONE SEEN /hpf (NONE SEEN); URINE EPITHELIAL CELLS NONE SEEN /lpf (FEW); URINE RBC NONE SEEN /hpf (0-5); URINE WBC NONE SEEN /hpf (0-5)
[2017-09-14 17:26] LABS: ALB/GLOB RATIO 1.6 (1.0-1.8); ALBUMIN 3.9 gm/dL (3.7-5.3); ALKALINE PHOSPHATASE 60 U/L (34-104); ANION GAP 9.9 (7.0-16.0); BILIRUBIN,TOTAL 0.2 mg/dL (0.3-1.0); BUN - UREA NITROGEN 15 mg/dL (7-25); CALCIUM SERUM 8.8 mg/dL (8.6-10.3); CARBON DIOXIDE 23.9 mEq/L (21.0-31.0); CHLORIDE 105 mEq/L (98-107); CREATININE - SERUM 0.7 mg/dL (0.6-1.2); GFR AFRICAN-AMERICAN > 60.0 ml/min (>90); GFR NON AFRICAN-AMERICAN > 60.0 ml/min; GLUCOSE 88 mg/dL (70-105); POTASSIUM SERUM 3.8 mEq/L (3.5-5.1); SGOT 16 U/L (13-39); SGPT/ALT 14 U/L (7-52); SODIUM SERUM 135 mEq/L (136-145); TOTAL PROTEIN,SERUM 6.4 gm/dL (6.0-8.3)
== END 2017-09-14 18:35 | disposition home or self-care (01) ==
LOC: ER 16:10
DX: K52.9 Noninfective gastroenteritis and colitis, unspecified (principal); R42 Dizziness and giddiness; K13.79 Other lesions of oral mucosa; Z90.49 Acquired absence of other specified parts of digestive tract
CPT/HCPCS: 99284; 96374; 96375; 36415; 85025; 81001; 81025; 80053; J1885; J2405; J7030; Z7502

== ENCOUNTER 2018-01-12 21:06 | Emergency (ER) | payer MEDICAID ==
--- NOTE | 2018-01-12 21:39 | ED Physician Chart ---
ED Chief Complaint/HPI - Patient Information Date Seen:: 01/12/18 Time Seen:: 21:32 Chief Complaint:: Nausea and vomiting, "body burning" History of Present Illness:: 37 yo female had sweats and "whole body burning" for a week worsened last night. Patient had a laparoscopic gastric sleeve surgery done in [place] a month ago. Patient had frequent nausea and vomiting. In ER, patient vomited once with heartburn. Allergies:: Allergies Allergy/AdvReac Type Severity Reaction Status Date / Time No Known Allergies Allergy Verified 12/08/16 22:32 Vitals:: Vital Signs - 8 hr 01/12/18 21:10 Temp 97.8 F HR 67 RR 18 BP 132/90 O2 Sat % 98 ED Review of Systems - Review of Systems General/Constitutional: No fever, Chills, Weight loss Skin: No rash Head: No headache Eyes: No pain ENT: No nasal drainage Neck: No neck pain Cardio Vascular: No chest pain Pulmonary: No SOB GI: Nausea, Vomiting Musculoskeletal: No back pain Psychiatric: No prior psych history Neurological: No focal symptoms ED Past Medical History - Past Medical History Past Medical History: No significant medical hx Social History: Non Smoker, No Alcohol, No Drug Use Surgical History: Cholecystectomy, (x 4), other (gastric sleeve, abdominal hernia repair) Family Medical History - Family Member Mother History Unknown: Yes Living Status: Still Living Hx Family Cancer: Yes ED Physical Exam - Physical Examination General/Constitutional: Awake, Alert Head: Atraumatic Eyes: PERRL Skin: No ecchymosis ENMT: Nasal exam nl Neck: No nuchal rigidity Respiratory: No Wheeze/Rhonchi/Rales Cardio Vascular: RRR, No murmur, gallop, rubs, NL S1 S2 Other GI comments:: Laparoscopic incision wounds intact. Mild RLQ tenderness. Extremities: normal strength in all extremities Neuro/Psych: Alert/oriented ED Labs/Radiology/EKG Results - Lab Results Results: Laboratory Last Values WBC 6.7 Th/cmm (4.8-10.8) 01/12/18 21:55 RBC 4.23 Mil/cmm (3.80-5.10) 01/12/18 21:55 Hgb 12.2 gm/dL (12-16) 01/12/18 21:55 Hct 37.7 % (41.0-60) L 01/12/18 21:55 MCV 89.3 fl (81-100) 01/12/18 21:55 MCH 28.7 pg (27.0-31.0) 01/12/18 21:55 MCHC Differential 32.2 pg (28.0-36.0) 01/12/18 21:55 RDW 13.8 % (11.5-20.0) 01/12/18 21:55 Plt Count 198 Th/cmm (150-400) 01/12/18 21:55 MPV 8.4 fl 01/12/18 21:55 Neutrophils % 54.8 % (40.0-80.0) 01/12/18 21:55 Lymphocytes % 37.9 % (20.0-50.0) 01/12/18 21: Monocytes % 5.0 % (2.0-10.0) 01/12/18 21: Eosinophils % 1.5 % (0.0-5.0) 01/12/18 21: Basophils % 0.8 % (0.0-2.0) 01/12/18 21:55 Sodium 138 mEq/L (136-145) 01/12/18 21:55 Potassium 3.7 mEq/L (3.5-5.1) 01/12/18 21:55 Chloride 105 mEq/L (98-107) 01/12/18 21:55 Carbon Dioxide 23.3 mEq/L (21.0-31.0) 01/12/18 21:55 Anion Gap 13.4 (7.0-16.0) 01/12/18 21:55 BUN 14 mg/dL (7-25) 01/12/18 21:55 Creatinine 0.7 mg/dL (0.6-1.2) 01/12/18 21:55 Est GFR ( Amer) > 60.0 ml/min (>90) 01/12/18 21:55 Est GFR (Non-Af Amer) > 60.0 ml/min 01/12/18 21:55 BUN/Creatinine Ratio 20.0 01/12/18 21: Glucose 112 mg/dL (70-105) H 01/12/18 21:55 Calcium 9.0 mg/dL (8.6-10.3) 01/12/18 21:55 Total Bilirubin 0.2 mg/dL (0.3-1.0) L 01/12/18 21:55 AST 16 U/L (13-39) 01/12/18 21:55 ALT 11 U/L (7-52) 01/12/18 21:55 Alkaline Phosphatase 83 U/L (34-104) 01/12/18 21:55 Total Protein 6.7 gm/dL (6.0-8.3) 01/12/18 21:55 Albumin 4.0 gm/dL (3.7-5.3) 01/12/18 21:55 Globulin 2.7 gm/dL 01/12/18 21:55 Albumin/Globulin Ratio 1.5 (1.0-1.8) 01/12/18 21:55 Lipase 38 U/L (11-82) 01/12/18 21:55 Urine Source RANDOM 01/12/18 21:20 Urine Color YELLOW 01/12/18 21:20 Urine Clarity CLEAR (CLEAR) 01/12/18 21:20 Urine pH 6.0 (4.6 - 8.0) 01/12/18 21:20 Ur Specific [place] >= 1.030 (1.005-1.030) 01/12/18 21:20 Urine Protein NEGATIVE mg/dL (NEGATIVE) 01/12/18 21:20 Urine Glucose (UA) NEGATIVE mg/dL (NEGATIVE) 01/12/18 21:20 Urine Ketones NEGATIVE mg/dL (NEGATIVE) 01/12/18 21:20 Urine Blood NEGATIVE (NEGATIVE) 01/12/18 21:20 Urine Nitrate NEGATIVE (NEGATIVE) 01/12/18 21:20 Urine Bilirubin NEGATIVE (NEGATIVE) 01/12/18 21:20 Urine Urobilinogen 0.2 E.U./dL (0.2 - 1.0) 01/12/18 21:20 Ur Leukocyte Esterase NEGATIVE (NEGATIVE) 01/12/18 21:20 Urine Opiates Screen NEGATIVE (NEGATIVE) 01/12/18 21:20 Urine Methadone Screen NEGATIVE (NEGATIVE) 01/12/18 21:20 Ur Barbiturates Screen NEGATIVE (NEGATIVE) 01/12/18 21:20 Ur Tricyclics Screen NEGATIVE (NEGATIVE) 01/12/18 21:20 Ur Phencyclidine Scrn NEGATIVE (NEGATIVE) 01/12/18 21:20 Amphetamines Screen NEGATIVE (NEGATIVE) 01/12/18 21:20 U Methamphetamines Scrn NEGATIVE (NEGATIVE) 01/12/18 21:20 U Benzodiazepines Scrn NEGATIVE (NEGATIVE) 01/12/18 21:20 U Cocaine Metab Screen NEGATIVE (NEGATIVE) 01/12/18 21:20 U Cannabinoids Screen NEGATIVE (NEGATIVE) 01/12/18 21:20 ED Assessment - Assessment General Assessment: Emesis, s/p gastric sleeve Dehydration Assessment/Comments:: CBC, CMP, UA, urine drug screen Pantoprazole 40mg IV NS 1L IV bolus D/c home F/u PCP or return to ER if symptoms worsen ED Septic Shock - . Is Septic Shock (SBP<90, OR Lactate>4 mmol\\L) present?: No - <6hrs of presentation: Vital Signs: Vital Signs - 8 hr 01/12/18 21:10 Temp 97.8 F HR 67 RR 18 BP 132/90 O2 Sat % 98 ED Reassessment (Disposition) - Reassessment Reassessment Condition:: Improved - Patient Disposition Discharge/Transfer:: Home
[2018-01-12 22:03] LABS: % BASOPHILS 0.8 % (0.0-2.0); % EOSINOPHILS 1.5 % (0.0-5.0); % LYMPHOCYTES 37.9 % (20.0-50.0); % NEUTROPHILS 54.8 % (40.0-80.0); BASOPHILE ABSOLUTE 0.1 Th/cumm (0-0.2); EOSINOPHILE ABSOLUTE 0.1 Th/cmm (0.1-0.4); HEMATOCRIT 37.7 % (41.0-60); HEMOGLOBIN 12.2 gm/dL (12-16); LYMPHOCYTE ABSOLUTE 2.5 Th/cmm (1.5-3.0); MEAN CELL VOLUME 89.3 fl (81-100); MEAN CORPUSCULAR HEMOGLOBIN 28.7 pg (27.0-31.0); MEAN CORPUSCULAR HGB CONC 32.2 pg (28.0-36.0); MEAN PLATELET VOLUME 8.4 fl; MONOCYTE ABSOLUTE 0.3 Th/cmm (0.3-1.0); NEUTROPHILE ABSOLUTE 3.7 Th/cmm (1.8-8.0); PLATELET COUNT 198 Th/cmm (150-400); RED BLOOD COUNT 4.23 Mil/cmm (3.80-5.10); RED CELL DISTRIBUTION WIDTH 13.8 % (11.5-20.0); WHITE BLOOD COUNT 6.7 Th/cmm (4.8-10.8)
[2018-01-12 22:10] LABS: URINE SOURCE RANDOM
[2018-01-12 22:17] LABS: URINE BILIRUBIN NEGATIVE (NEGATIVE); URINE BLOOD NEGATIVE (NEGATIVE); URINE GLUCOSE (UA) NEGATIVE (NEGATIVE); URINE KETONE NEGATIVE (NEGATIVE); URINE LEUKOCYTE ESTERASE NEGATIVE (NEGATIVE); URINE NITRATE NEGATIVE (NEGATIVE); URINE PROTEIN NEGATIVE (NEGATIVE); URINE UROBILINOGEN 0.2 E.U./dL (0.2 - 1.0)
[2018-01-12 22:25] LABS: AMPHETAMINE URINE NEGATIVE (NEGATIVE); BARBITURATES URINE NEGATIVE (NEGATIVE); BENZODIAZEPINES QUAL URINE NEGATIVE (NEGATIVE); CANNABINOID THC NEGATIVE (NEGATIVE); COCAINE METABOLITE QUAL URINE NEGATIVE (NEGATIVE); METHADONE URINE NEGATIVE (NEGATIVE); METHAMPHETAMINES QUAL URINE NEGATIVE (NEGATIVE); OPIATES (MORPHINE) QUAL. URINE NEGATIVE (NEGATIVE); PHENCYCLIDINE (PCP) URINE NEGATIVE (NEGATIVE); TRICYCLICS (TCA) QUAL. URINE NEGATIVE (NEGATIVE); URINE CLARITY CLEAR (CLEAR); URINE COLOR YELLOW; URINE MICROSCOPIC INDICATED? NO
[2018-01-12 22:25] LABS: ALB/GLOB RATIO 1.5 (1.0-1.8); ALKALINE PHOSPHATASE 83 U/L (34-104); ANION GAP 13.4 (7.0-16.0); BILIRUBIN,TOTAL 0.2 mg/dL (0.3-1.0); BUN - UREA NITROGEN 14 mg/dL (7-25); CARBON DIOXIDE 23.3 mEq/L (21.0-31.0); CHLORIDE 105 mEq/L (98-107); CREATININE - SERUM 0.7 mg/dL (0.6-1.2); GFR AFRICAN-AMERICAN > 60.0 ml/min (>90); GFR NON AFRICAN-AMERICAN > 60.0 ml/min; GLUCOSE 112 mg/dL (70-105); LIPASE 38 U/L (11-82); POTASSIUM SERUM 3.7 mEq/L (3.5-5.1); SGOT 16 U/L (13-39); SGPT/ALT 11 U/L (7-52); SODIUM SERUM 138 mEq/L (136-145); TOTAL PROTEIN,SERUM 6.7 gm/dL (6.0-8.3)
[2018-01-12] MEDS ORDERED: Sodium Chloride 0.9% 1,000 ML IV ONE (22:35)
== END 2018-01-12 23:53 | disposition home or self-care (01) ==
LOC: ER 21:06
DX: E86.0 Dehydration (principal); R11.2 Nausea with vomiting, unspecified; R10.31 Right lower quadrant pain; Z90.49 Acquired absence of other specified parts of digestive tract; Z98.890 Other specified postprocedural states
CPT/HCPCS: 99284; 96374; 36415; 80307; 85025; 81003; 83690; 80053; C9113; Z7502

== ENCOUNTER 2018-06-26 13:02 | Emergency (ER) | payer MEDICAID ==
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
[2018-06-26 14:20] LABS: AMPHETAMINE URINE NEGATIVE (NEGATIVE); BARBITURATES URINE NEGATIVE (NEGATIVE); BENZODIAZEPINES QUAL URINE NEGATIVE (NEGATIVE); CANNABINOID THC NEGATIVE (NEGATIVE); COCAINE METABOLITE QUAL URINE NEGATIVE (NEGATIVE); METHADONE URINE NEGATIVE (NEGATIVE); METHAMPHETAMINES QUAL URINE NEGATIVE (NEGATIVE); OPIATES (MORPHINE) QUAL. URINE NEGATIVE (NEGATIVE); PHENCYCLIDINE (PCP) URINE NEGATIVE (NEGATIVE); TRICYCLICS (TCA) QUAL. URINE NEGATIVE (NEGATIVE)
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
--- NOTE | 2018-06-27 11:05 | Diagnostic Imaging Report ---
Lumbar spine 3 views Indication: Trauma Comparison: Lumbar spine x-ray on 09/13/[address] abdomen and pelvis on 02/15/2017 Findings: No acute compression fracture or subluxation. Minimal generalized degenerative changes are noted. There is evidence of prior cholecystectomy. There appear to be external coaling material overlying the upper abdomen. Impression: No evidence of an acute compression fracture or subluxation. If indicated CT follow-up may be obtained. Evidence of prior cholecystectomy. In the setting of trauma, if clinical symptoms persist and there is continued concern for an occult fracture, follow up exams in 5-7 days is suggested.
== END 2018-06-26 14:55 | disposition home or self-care (01) ==
LOC: ER 13:02
DX: S80.01XA Contusion of right knee, initial encounter (principal); S30.0XXA Contusion of lower back and pelvis, initial encounter; M19.90 Unspecified osteoarthritis, unspecified site; Y04.8XXA Assault by other bodily force, initial encounter; Y93.89 Activity, other specified; Y92.89 Other specified places as the place of occurrence of the external cause; Y99.8 Other external cause status
CPT/HCPCS: 72110-TC; 73562-TC-RT; 80307; 81025-TC

== ENCOUNTER 2018-07-21 20:23 | Emergency (ER) | payer MEDICAID ==
--- NOTE | 2018-07-21 20:59 | ED Physician Chart ---
ED Chief Complaint/HPI - Patient Information Date Seen:: 07/21/18 Time Seen:: 20:56 Chief Complaint:: sore throat History of Present Illness:: 37 yr old female mom of boy who is with sore throat who daughter was diagnosed recently with sore throat and given amox now mom is ill with sore throat no fever or cough no dizziness cp or abd pain Allergies:: Allergies Allergy/AdvReac Type Severity Reaction Status Date / Time No Known Allergies Allergy Verified 06/26/18 13:47 ED Review of Systems - Review of Systems General/Constitutional: No fever, No chills, No weight loss, No weakness, No diaphoresis, No edema, No loss of appetite Skin: No skin lesions, No rash, No bruising Head: No headache, No light-headedness Eyes: No loss of vision, No pain, No diplopia ENT: Sore throat Neck: No neck pain, No swelling, No thyromegaly, No stiffness, No mass noted Cardio Vascular: No chest pain, No palpitations, No PND, No orthopnea, No edema Pulmonary: No SOB, No cough, No sputum, No wheezing GI: No nausea, No vomiting, No diarrhea, No pain, No melena, No hematochezia, No constipation, No hematemesis G/U: No dysuria, No frequency, No hematuria Musculoskeletal: No bone or joint pain, No back pain, No muscle pain Endocrine: No polyuria, No polydipsia Psychiatric: No prior psych history, No depression, No anxiety, No suicidal ideation Hematopoietic: No bruising, No lymphadenopathy Allergic/Immuno: No urticaria, No angioedema Neurological: No syncope, No focal symptoms, No weakness, No paresthesia, No headache, No seizure, No dizziness, No confusion, No vertigo ED Past Medical History - Past Medical History Past Medical History: No significant medical hx Family Medical History - Family Member Mother History Unknown: Yes Ethnicity: Living Status: Still Living Hx Family Cancer: Yes ED Physical Exam - Physical Examination General/Constitutional: Awake, Well-developed, well-nourished, Alert, No distress, GCS 15, Non-toxic appearing, Ambulatory Head: Atraumatic Eyes: Lids, conjuctiva normal, PERRL, EOMI Skin: Nl inspection, No rash, No skin lesions, No ecchymosis, Well hydrated, No lymphadenopathy ENMT: External ears, nose nl, Nasal exam nl, Lips, teeth, gums nl Neck: Nontender, Full ROM w/o pain, No JVD, No nuchal rigidity, No bruit, No mass, No stridor Respiratory: Nl effort/Exclusion, Clear to Auscultation, No Wheeze/Rhonchi/Rales Cardio Vascular: RRR, No murmur, gallop, rubs, NL S1 S2 GI: No tenderness/rebounding/guarding, No organomegaly, No hernia, Normal BS's, Nondistended, No mass/bruits, No McBurney tenderness : No CVA tenderness Extremities: No tenderness or effusion, Full ROM, normal strength in all extremities, No edema, Normal digits & nails Neuro/Psych: Alert/oriented, DTR's symmetric, Normal sensory exam, Normal motor strength, Judgement/insight normal, Mood normal, Normal gait, No focal deficits Misc: Normal back, No paraspinal tenderness ED Assessment - Assessment General Assessment: sore throat ED Septic Shock - . Is Septic Shock (SBP<90, OR Lactate>4 mmol\L) present?: No ED Reassessment (Disposition) - Reassessment Reassessment:: sore throat - Diagnosis Diagnosis:: sore throat - Aftercare/Follow up Instructions Medication Prescribed:: amox - Patient Disposition Discharge/Transfer:: Home Condition at Disposition:: Stable
== END 2018-07-21 20:45 | disposition home or self-care (01) ==
LOC: ER 20:23
DX: J02.9 Acute pharyngitis, unspecified (principal)
CPT/HCPCS: Z7502

== ENCOUNTER 2018-10-14 14:58 | Emergency (ER) | payer SELFPAY ==
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
== END 2018-10-14 15:55 | disposition home or self-care (01) ==
LOC: ER 14:58
DX: S06.0X0A Concussion without loss of consciousness, initial encounter (principal); S16.1XXA Strain of muscle, fascia and tendon at neck level, initial encounter; S20.219A Contusion of unspecified front wall of thorax, initial encounter; S30.1XXA Contusion of abdominal wall, initial encounter; Z90.49 Acquired absence of other specified parts of digestive tract; V43.53XA Car driver injured in collision with pick-up truck in traffic accident, initial encounter; Y93.89 Activity, other specified; Y92.410 Unspecified street and highway as the place of occurrence of the external cause; Y99.8 Other external cause status
CPT/HCPCS: Z7610

== ENCOUNTER 2018-10-15 20:38 | Emergency (ER) | payer MEDICAID | END 2018-10-15 21:50 | disposition left against medical advice (07) | LOC: ER 20:38 | DX: M54.9 Dorsalgia, unspecified (principal); Z53.21 Procedure and treatment not carried out due to patient leaving prior to being seen by health care provider ==

== ENCOUNTER 2018-11-01 18:46 | Emergency (ER) | payer SELFPAY ==
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
--- NOTE | 2018-11-02 14:07 | Diagnostic Imaging Report ---
Lumbar spine (3 views) HISTORY: Pain Alignment is normal. Disc spaces are maintained. Minimal spur formation noted off the anterior margins of the bodies of L4 and L5. IMPRESSION: 1. No acute abnormalities 2. Minimal degenerative changes L4 and L5
--- NOTE | 2018-11-02 14:07 | Diagnostic Imaging Report ---
Left shoulder (3 views) HISTORY: Pain No acute bony abnormalities. No fractures. No dislocation. Mild degenerative changes seen about the acromioclavicular joint. IMPRESSION: 1. No acute abnormalities 2. Mild degenerative changes about the acromioclavicular joint
== END 2018-11-01 21:12 | disposition home or self-care (01) ==
LOC: ER 18:46
DX: S39.012A Strain of muscle, fascia and tendon of lower back, initial encounter (principal); S40.012A Contusion of left shoulder, initial encounter; Z98.890 Other specified postprocedural states; V89.2XXA Person injured in unspecified motor-vehicle accident, traffic, initial encounter; Y93.89 Activity, other specified; Y92.410 Unspecified street and highway as the place of occurrence of the external cause; Y99.8 Other external cause status
CPT/HCPCS: 72100-TC; 73030-TC-LT; 81025-TC